=== PATIENT | male | born 1995 | race Caucasian/White ===

== ENCOUNTER 2017-08-01 18:56 | Emergency (ER) | payer OTHER ==
[~2017-08-01] VITALS: Ht 172.7 cm; Wt 61.4 kg
[2017-08-01 21:40] VITALS: BP 137/61; PULSE 91
== END 2017-08-01 21:40 | disposition home or self-care (01) ==
LOC: COL.ER 18:56
DX: T18.128A Food in esophagus causing other injury, initial encounter (principal); X58.XXXA Exposure to other specified factors, initial encounter
CPT/HCPCS: J2250; J2405; J3010; J7120